=== PATIENT | male | born 1955 | race Caucasian/White ===

== ENCOUNTER 2016-07-22 12:09 | Day surgery (SDC) | payer MEDICARE ==
[2016-07-22] MEDS ORDERED: IV START KIT ONE (12:21)
[2016-07-22] MEDS ORDERED: LACTATED RINGERS 1,000 ML ONE (12:21)
[2016-07-22] MEDS ORDERED: CEFAZOLIN SODIUM 2 GRAM DUPLEX 50 ML IV PRN (12:30)
[2016-07-22] MEDS ORDERED: GENTAMICIN SULFATE 320 MG in SODIUM CHLORIDE 0.9% 100 ML IV PRN (12:30)
[2016-07-22] MEDS ORDERED: PROPOFOL 20 ML IV ONE (15:23)
[2016-07-22] MEDS ORDERED: MIDAZOLAM HCL 1 MG/ML 2ML VIAL ONE (15:23)
[2016-07-22] MEDS ORDERED: SPINAL PROCEDURAL TRAY 1 EACH ONE (15:33)
[2016-07-22] MEDS ORDERED: BUPIVACAINE 0.75% SPINAL AMPUL 2 ML ONE (15:33)
[2016-07-22] MEDS ORDERED: OPIUM/BELLADONNA ALKALOIDS 1 EACH SUP PR ONE (15:40)
[2016-07-22] MEDS ORDERED: MORPHINE SULFATE 4 MG/ML SYRINGE IV PRN (16:08)
[2016-07-22] MEDS ORDERED: FENTANYL 100 MCG/2 ML VIAL IV PRN (16:08)
[2016-07-22] MEDS ORDERED: PROMETHAZINE HCL 25 MG/ML VIAL IM PRN (16:09)
[2016-07-22] MEDS ORDERED: LACTATED RINGERS 1,000 ML IV SCH (16:15)
[2016-07-22] MEDS ORDERED: MORPHINE SULFATE 2 MG/ML SYRINGE IV PRN (17:31)
[2016-07-22] MEDS ORDERED: ONDANSETRON 4 MG/2ML 2 ML VIAL IV PRN (17:31)
[2016-07-22] MEDS ORDERED: OPIUM/BELLADONNA ALKALOIDS 1 EACH SUP PR PRN (17:31)
[2016-07-22] MEDS ORDERED: PROMETHAZINE HCL 25 MG SUP PR PRN (17:31)
[2016-07-22] MEDS ORDERED: HYDROCODONE/ACETAMINOPHEN 5/325MG TABLET PO PRN (17:31)
[2016-07-22] MEDS ORDERED: PHENAZOPYRIDINE HCL 200 MG TABLET PO ONE (17:31)
--- NOTE | 2016-07-22 18:12 | OP ---
CAROL WILLS [id number] DATE OF OPERATION: July 22, 2016 SURGEON: Zackery Hdez M.D. MATERIAL FLOW ANALYST: None. ANESTHESIA: Spinal. 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 PROCEDURE: TRANSURETHRAL RESECTION OF BLADDER NECK CONTRACTURE. SPECIMENS: None. INDICATIONS: A 61-year-old man post transurethral resection of the prostate for chronic outlet obstruction and severe detrusor decompensation in April of 2016, presented to the office complaining of a trickling stream and having tried self catheterization causing some bleeding. Cystoscopy demonstrated a superficial false passage in the prostatic urethra and a very tight bladder neck contracture. We were able to open the contracture enough in the clinic setting just to get a catheter in, and he presents now for definitive intervention. FINDINGS: The anterior urethra appeared normal. The membranous urethra appeared to be intact. The prostatic fossa was resected previously and healing well, but there is some roughness in the region of the tight bladder neck contracture where we had it for catheter placement. The bladder itself has a chronic floppy appearance with old trabeculation. The ureteral orifices were found close to the bladder neck on each side and were avoided during the course of the resection. PROCEDURE: The patient was identified and brought to the operating room where spinal anesthetic was applied. Then he was placed in a dorsal lithotomy position. The genital region was prepared and draped sterilely. The distal urethra was calibrated with [place] sounds up to 30 Arabic, and then a 28 Arabic resectoscope sheath was introduced with the visual obturator to the level of the prostatic urethra. I used saline as an irrigant and chose a bipolar button electrode. I began resection laterally on each side progressively releasing tissue and smoothing over exposed residual prostatic tissue or scar. Several times we checked internally to make sure we were staying away from the ureteral orifices. Once the opening was secured, I continued resection laterally on each side at approximately the 4 to 5 o'clock position and the 7 to 8 o'clock position to assure a wide bladder neck opening. That completed, we took several minutes to check for bleeding as we progressively lowered the intravesical pressure and finally removed the resectoscope and placed a 20 Arabic Marin catheter to gravity drainage with 30 mL of water in its balloon. Three-way saline irrigation was started temporarily to observe for hematuria. Estimated blood loss less than 20 mL. No early complications. Patient tolerated the procedure well and was taken in stable condition to the post anesthesia room. cc: Kamar Ames D.O.
[2016-07-22] MEDS ORDERED: PHENAZOPYRIDINE HCL 200 MG TABLET ONE (18:13)
[2016-07-22] MEDS ORDERED: HYDROCODONE/ACETAMINOPHEN 5/325MG TABLET ONE (18:31)
== END 2016-07-22 20:03 | disposition home or self-care (01) ==
LOC: SDC 12:09
PROVIDERS: ATTEND Urology
PROC: 0TBC8ZZ Excision of Bladder Neck, Via Natural or Artificial Opening Endoscopic (ICD-10-PCS; principal; 2016-07-22)
DX: N32.0 Bladder-neck obstruction (principal); R33.8 Other retention of urine; I12.9 Hypertensive chronic kidney disease with stage 1 through stage 4 chronic kidney disease, or unspecified chronic kidney disease; N18.4 Chronic kidney disease, stage 4 (severe); E03.9 Hypothyroidism, unspecified; Z86.19 Personal history of other infectious and parasitic diseases; Z85.72 Personal history of non-Hodgkin lymphomas
CPT/HCPCS: 52640; J1580; A9270 ×3; J2250; J7120; J7050